=== PATIENT | female | born 1970 | race Hispanic/Latino ===

== ENCOUNTER 2022-11-10 15:08 | Outpatient (CLI) | payer BC | END 2022-11-10 15:09 | disposition home or self-care (01) | LOC: ULT 15:08 | PROVIDERS: ATTEND Family Medicine Sports Medicine | DX: E04.1 Nontoxic single thyroid nodule (principal) | CPT/HCPCS: 76536 ==

== ENCOUNTER 2023-07-25 09:57 | Day surgery (SDC) | payer BC ==
[2023-07-22 14:41] VITALS: BMI 28.8
[2023-07-25] MEDS ORDERED: Lidocaine 1% PF 5 ML VIAL ONE (11:49)
[2023-07-25] MEDS ORDERED: Sodium Bicarbonate 0.5 MEQ/ML SDV 10 ML ONE (11:49)
[2023-07-25] MEDS ORDERED: fentaNYL PF 100 MCG/2 ML SYRINGE ONE (13:00)
[2023-07-25] MEDS ORDERED: Midazolam HCl 2 mg/2 ml Vial ONE (13:00)
[2023-07-25] MEDS ORDERED: Ketamine In 0.9 % NaCl 50 MG/5 ML SYRINGE ONE (13:01)
[2023-07-25] MEDS ORDERED: Dexamethasone 20 MG/5 ML VIAL ONE (13:39)
[2023-07-25] MEDS ORDERED: PROPOFOL 200 MG/20 ML VIAL ONE (13:39)
[2023-07-25] MEDS ORDERED: SUCCINYLCHOLINE/SOD CL,ISO/PF 200 MG/10 ML SYRINGE FS ONE (13:39)
[2023-07-25] MEDS ORDERED: Ondansetron PF 4 MG/2 ML Vial ONE (14:47)
== END 2023-07-25 15:36 | disposition home or self-care (01) ==
LOC: ULT 09:57
PROVIDERS: ATTEND Otolaryngology Otolaryngic Allergy
PROC: 0G9G3ZX Drainage of Left Thyroid Gland Lobe, Percutaneous Approach, Diagnostic (ICD-10-PCS; principal; 2023-07-25)
DX: E04.2 Nontoxic multinodular goiter (principal); G43.909 Migraine, unspecified, not intractable, without status migrainosus; G47.30 Sleep apnea, unspecified; F32.A Depression, unspecified; F41.9 Anxiety disorder, unspecified; Z91.048 Other nonmedicinal substance allergy status
CPT/HCPCS: 10005; 36416; 88173; 88305; J1100; J2250; J2405; J2704; J3490